=== PATIENT | male | born 1995 | race Caucasian/White ===

== ENCOUNTER 2020-04-26 18:43 | Emergency (ER) | payer OTHER, SELFPAY ==
[2020-04-26 18:53] VITALS: BP 113/73; PULSE 76; RESP 16; TEMP 36.5; O2SAT 98; BMI 23.8
--- NOTE | 2020-04-26 19:02 | ED_ITS ---
HPI - General Adult General: Chief complaint: General Medical Stated complaint: Covid symptoms.fever/loss of smell/SOB/muscle ache Time Seen by Provider: 04/26/20 18:58 Source: patient Mode of arrival: ambulatory Limitations: no limitations History of Present Illness: HPI narrative: 24-year-old male who presents here with cough along with fevers loss of sense of taste and smell. He is concerned he is Covid. Patient is well-appearing here and is no distress. He denies any worsening or improving factors. He has had no vomiting or diarrhea. Associated symptoms: Deny chest pain, dyspnea, headache(s), nausea, rash or vomiting Review of Systems Const: Reports: fever(s) Eyes: Denies: blurry vision or eye discomfort ENMT: Denies: throat pain or dental pain Card: Denies: chest pain Resp: Denies: dyspnea GI: Denies: abdominal pain, nausea, vomiting or diarrhea : Denies: dysuria Musc: Denies: neck pain or back pain Skin/Breast: Denies: rash Neuro: Denies: headache(s) Psych: Denies: depression [place]/Lymph: Denies: easy bruising All/Imm: Denies: urticaria PFSH ED PFSH: Social History (Updated 04/15/20 @ 17:42 by Nafisa Levy LPN) Smoking and tobacco status: current every day smoker Physical Exam Const: COMMON NORMALS: no acute distress, patient oriented x3 and healthy appearing HENMT: COMMON NORMALS: normocephalic and atraumatic HEAD & SCALP: normocephalic and atraumatic Eye: COMMON NORMALS: Equal, round and reactive pupils present and EOMs intact bilaterally PUPIL: Yes Equal, round and reactive pupils present Neck/C-Spine: COMMON NORMALS: full ROM and supple Chest: COMMONS NORMALS: normal inspection of the chest and normal palpation of entire chest wall Resp: COMMON NORMALS: normal respiratory effort, No retractions, No use of accessory muscles and clear to auscultation bilaterally AUSCULTATION: clear to auscultation bilaterally Cardio: COMMON NORMALS: regular rate, regular rhythm and No murmurs present (Cardio) RATE: regular rate RHYTHM: regular rhythm GI: COMMON NORMALS: Normal to inspection, nondistended, normoactive bowel sounds present, Soft to palpation, non-tender and no masses PALPATION: Yes Soft to palpation Extremity: COMMON NORMALS: normal to inspection and full ROM Neuro: COMMON NORMALS: patient oriented x3, moves all extremities and no focal motor deficits Psych: COMMON NORMALS: mental status grossly normal, Normal thought process present and cooperative THOUGHT PROCESS: Normal thought process present Skin: COMMON NORMALS: no rashes or lesions noted and no wounds GENERAL SKIN EXAM: no rashes or lesions noted Course Vital Signs: Vital signs: Vital Signs Temperature 97.7 F 04/26/20 18:53 Pulse Rate 76 04/26/20 18:53 Respiratory Rate 16 04/26/20 18:53 Blood Pressure 113/73 04/26/20 18:53 Pulse Oximetry 98 04/26/20 18:53 MDM - General Adult MDM Narrative: Medical decision making narrative: Patient presents here with Covid-like symptoms. He is in no distress not requiring any oxygen will swab him and he is to monitor his oxygen return if it gets less than 92% he understands agrees to plan. Discharge Plan Discharge Patient Disposition: Home Clinical Impression: Upper respiratory infection Qualifiers: URI type: unspecified URI Qualified Code(s): J06.9 - Acute upper respiratory infection, unspecified Condition: Stable Prescriptions: No Action No Known Home Medications RF: 0 Discharge Orders: Discharge ED (Routine); Ordered 04/26/20 Ordered By: Shreya Hammond Referrals: Clarke Lund MD [Primary Care Provider] - 1-3 days Discharge Diet: Advance as tolerated Discharge Activity: Resume usual activity Patient Instructions: Upper Respiratory Infection (ED) Coding Level of Care Code ED Genomics Scientist for [facility]
[2020-04-26 19:17] VITALS: RESP 16
[2020-04-28 07:10] LABS: Coronavirus Lab Test PTC Negative
--- NOTE | 2020-04-28 09:19 | PC.NURSE ---
Patient notified of COVID results at this time.
== END 2020-04-26 19:18 | disposition home or self-care (01) ==
PROVIDERS: Emergency Provider Emergency Medicine; PCP Family Medicine
DX: J06.9 Acute upper respiratory infection, unspecified (principal); F17.210 Nicotine dependence, cigarettes, uncomplicated
CPT/HCPCS: 12345; 87635; 99281; 99282

== ENCOUNTER → 2020-10-03 17:09 | Outpatient (BNVA) | payer SELFPAY | PROVIDERS: PCP Family Medicine; Visit Provider Nurse Practitioner | DX: R50.9 Fever, unspecified (principal) | CPT/HCPCS: 87071; 87880 ==

== ENCOUNTER 2024-03-26 14:52 | Emergency (ER) | payer SELFPAY ==
[2024-03-26 15:08] VITALS: BP 112/69; PULSE 78; RESP 18; TEMP 37; O2SAT 97; BMI 24.9
[2024-03-26 16:06] LABS: Basophils # 0.1 10^3/uL (0.0-0.1); Basophils % 0.5 %; Eosinophils % 0.1 %; Hematocrit 44.1 % (37-53); Lymphocytes # 1.3 10^3/uL (0.8-4.8); Mean Corpuscular HGB Conc 35.6 g/dL (30-55); Mean Corpuscular Hemoglobin 31.1 pg (27-33); Mean Corpuscular Volume 87.3 fl (82-101); Mean Platelet Volume 9.5 fL (7.4-10.4); Monocytes # 0.7 10^3/uL (0.2-0.9); Neutrophils # 7.85 10^3/uL (1.8-7.7); Neutrophils % 78.8 %; Nucleated Red Blood Cells % 0 %; Platelet Count 178 10^3/cmm (157-399); Red Blood Count 5.05 10^6/uL (3.85-5.65); Red Cell Distribution Width 10.9 % (12.1-15.1); White Blood Count 9.96 10^3/uL (3.29-11.43)
[2024-03-26 16:08] LABS: Alanine Aminotransferase 29 U/L (0-41); Albumin Level 4.3 g/dL (3.5-5.2); Alkaline Phosphatase 94 U/L (40-130); Anion Gap 16.3 (5-19); Aspartate Amino Transferase 24 U/L (0-40); Blood Urea Nitrogen 12 mg/dL (6-20); Carbon Dioxide 23 mmol/L (22-29); Chloride 100 mmol/L (98-107); Creatinine Clr Calc Pharmacy 115.0715; Globulin 3.3 g/dL (1.3-4.6); Glomerular Filtration Rate 80.9 mL/min (90-130); Glucose 104 mg/dL (65-115); Lipase 79 U/L (13-60); Osmolality Calculated 280 mOsm/kg (285-295); Potassium 4.3 mmol/L (3.5-5.1); Sodium 135 mmol/L (136-145); Total Bilirubin 0.6 mg/dL (0.15-1.2); Total Protein 7.6 g/dL (6.6-8.7)
--- NOTE | 2024-03-26 18:32 | CTR_ITS ---
PROCEDURE INFORMATION: Exam: CT Abdomen And Pelvis With Contrast Exam date and time: 03/26/2024 7:24 PM Age: 28 years old Clinical indication: Abdominal pain; Localized; Right lower quadrant (rlq); Additional info: Diffuse abd pain, worse in rlq TECHNIQUE: Imaging protocol: Computed tomography of the abdomen and pelvis with contrast. Radiation optimization: All CT scans at this facility use at least one of these dose optimization techniques: automated exposure control; mA and/or kV adjustment per patient size (includes targeted exams where dose is matched to clinical indication); or iterative reconstruction. Contrast material: OMNIPAQUE 350; Contrast volume: 100 ml; Contrast route: INTRAVENOUS (IV); COMPARISON: No relevant prior studies available. RADIATION DOSE METRICS: Total DLP (mGy-cm): 527.77 FINDINGS: Liver: Hepatic steatosis. Right hepatic lobe cyst. Gallbladder and biliary ducts: Normal. No calcified stones. No ductal dilation. Pancreas: Normal. No ductal dilation. Spleen: Spleen enlarged to 14 cm. Adrenal glands: Normal. No mass. Kidneys and ureters: Normal. No hydronephrosis. Stomach and bowel: Ascending and transverse wall thickening with mucosal enhancement concerning for a colitis. Appendix: No evidence of appendicitis. Intraperitoneal space: Unremarkable. No free air. No significant fluid collection. Vasculature: Unremarkable. No abdominal aortic aneurysm. Lymph nodes: Scattered subcentimeter short axis nonspecific mesenteric lymph nodes. Urinary bladder: Unremarkable as visualized. Reproductive: Unremarkable as visualized. Bones/joints: Unremarkable. No acute fracture. Soft tissues: Unremarkable. CT/CT abdomen pelvis w con* [id number] IMPRESSION: 1. Ascending and transverse wall thickening with mucosal enhancement concerning for a colitis. 2. Scattered subcentimeter short axis nonspecific mesenteric lymph nodes. 3. Spleen enlarged to 14 cm. 4. Hepatic steatosis. 5. Right hepatic lobe cyst.
--- NOTE | 2024-03-26 18:43 | ED_ITS ---
HPI - Abdominal Pain 2 General: Chief Complaint: Abdominal Pain Stated Complaint: sever abd pain, fever, dirrhea Time Seen by Provider: 03/26/24 18:16 Source: patient Mode of arrival: ambulatory Limitations: no limitations History of Present Illness: Patient is a 28-year-old male with no pertinent past medical history reporting to the emergency department with abdominal pain diffusely for the past couple of days. Also is reporting intermittent fevers, nausea vomiting and diarrhea. Denies any sick contacts or exotic foods that may explain a food poisoning. No blood in his vomit or diarrhea, stating he has had 2 many episodes to count of diarrhea over the past couple of days but the vomiting just began today. The pain is reported to be worse to the right lower quadrant, still has his gallbladder and appendix and no past surgical history. He states taking Tylenol for his pain this has not done much. Still has been able to tolerate fluids and denies any real change in appetite. No other symptoms reported, his vitals are stable at this time. MD elicited complaint: abdominal pain Pertinent past history: none Onset (ago): day(s) Pain Consistency: constant Location: Diffuse Exacerbating factors: nothing Relieving factors: nothing Associated Symptoms: Reports diarrhea, fever(s), nausea and vomiting; Denies bloating, change in stool character, chills, constipation, dysuria and hematochezia Treatments prior to arrival: other (Tylenol) Related Data Previous Rx's Medication Instructions Recorded amoxicillin 875 mg-potassium 1 tab PO BID 10 days #20 tabs 03/26/24 clavulanate 125 mg tablet Allergies Allergy/AdvReac Type Severity Reaction Status Date / Time No Known Allergies Allergy Verified 03/26/24 15:13 Review of Systems 2 General: Reports: 10 or more systems reviewed and unremarkable except in HPI and below Const: Reports: fever(s); Denies: chills, change in appetite, change in weight or diaphoresis ENMT: Denies: throat pain or hoarseness Card: Denies: chest pain, palpitations or lightheadedness Resp: Denies: dyspnea, productive cough or wheezing GI: Reports: abdominal pain, nausea, vomiting and diarrhea; Denies: constipation, bloating, change in stool character or hematochezia : Denies: flank pain, difficulty urinating, dysuria, urinary frequency or urinary urgency Musc: Denies: neck pain or back pain Skin/Breast: Denies: rash or new lesions Neuro: Denies: headache(s) or dizziness PFSH ED 2 PFSH: Social History Smoking and tobacco/nicotine status: never used tobacco/nicotine Physical Exam 2 Const: COMMON NORMALS: no acute distress, average body habitus, patient oriented x3, no limitations, healthy appearing, alert and well nourished G ENERAL APPEARANCE: cooperative and comfortable ORIENTATION/CONSCIOUSNESS: Yes awake HENMT: COMMON NORMALS: normocephalic, atraumatic, hearing grossly normal bilaterally, external ears normal, Normal external nose present, Normal nasal mucous membranes and turbinates present and moist oral mucous membranes HEAD & SCALP: normocephalic and atraumatic NOSE: Normal external nose present and Normal nasal mucous membranes and turbinates present EXTERNAL EAR: Yes external ears normal Eye: COMMON NORMALS: Equal, round and reactive pupils present, EOMs intact bilaterally, conjunctivae normal and normal visual [place] by confrontation C ONJUNCTIVA: Yes conjunctivae normal PUPIL: Yes Equal, round and reactive pupils present Neck/C-Spine: COMMON NORMALS: full ROM, supple, no meningeal signs and no JVD Resp: COMMON NORMALS: normal respiratory effort, No retractions, No use of accessory muscles and clear to auscultation bilaterally AUSCULTATION: clear to auscultation bilaterally, no crackles, no rales, no rhonchi and no wheezes Cardio: COMMON NORMALS: no JVD, regular rate, regular rhythm, S1 normal heart sound present, S2 normal heart sound present, No gallops present (Cardio), No clicks present (Cardio), No murmurs present (Cardio), No rub (Cardio) and Peripheral pulses 2+ throughout RATE: regular rate RHYTHM: regular rhythm HEART SOUNDS: S1 normal heart sound present and S2 normal heart sound present PERIPHERAL PULSES: Peripheral pulses 2+ throughout GI: COMMON NORMALS: Normal to inspection, nondistended, normoactive bowel sounds present, Soft to palpation, No hepatosplenomegaly present and no masses AUSCULTATION: Yes normoactive bowel sounds PALPATION: Yes Soft to palpation, No Guarding due to palpation present (GI), No Rigid due to palpation and Yes No hepatosplenomegaly present RECTAL EXAM: Yes deferred OTHER: Diffuse tenderness to palpation lightly of the abdomen, however pain seems to be worse in the right lower quadrant with no peritoneal signs at this time : COMMON NORMALS: Yes no CVA tenderness BLADDER/KIDNEY EXAM: Yes no CVA tenderness Back/Pelvis: COMMON NORMALS: no CVA tenderness Extremity: COMMON NORMALS: normal to inspection and full ROM Neuro: COMMON NORMALS: patient oriented x3, moves all extremities, no focal motor deficits and no sensory deficits noted SENSORIUM/ORIENTATION: Yes alert MENINGEAL SIGNS: Yes no meningeal signs Psych: COMMON NORMALS: mental status grossly normal, cooperative and speech normal SPEECH: Yes normal speech Skin: COMMON NORMALS: no rashes or lesions noted GENERAL SKIN EXAM: no rashes or lesions noted Course 2 Vital Signs: Vital signs: Vital Signs Temperature 98.6 F 03/26/24 15:08 Pulse Rate 67 03/26/24 20:47 Respiratory Rate 16 03/26/24 20:47 Blood Pressure 118/64 03/26/24 20:47 Pulse Oximetry 97 03/26/24 20:47 Oxygen Delivery Me thod Room Air 03/26/24 20:05 MDM - Abdominal Pain Medical Decision Making Patient presented for couple days of abdominal pain associate with nausea vomiting diarrhea and intermittent fevers. Lab work was unremarkable, CT did show signs of colitis and he will be treated with Augmentin and refer to general surgery for further evaluation. Also will encourage GI soft diet and return precautions were given. All other questions and concerns addressed at this time, case discussed with Dr. Hammond. Lab Data 03/26/24 15:38 03/26/24 15:38 Labs/Radiology: Radiology Impressions Abdomen/Pelvis CT 03/26/24 18:32 IMPRESSION: 1. Ascending and transverse wall thickening with mucosal enhancement concerning for a colitis. 2. Scattered subcentimeter short axis nonspecific mesenteric lymph nodes. 3. Spleen enlarged to 14 cm. 4. Hepatic steatosis. 5. Right hepatic lobe cyst. Laboratory Results WBC 9.96 10^3/uL (3.29-11.43) 03/26/24 15:38 RBC 5.05 10^6/uL (3.85-5.65) 03/26/24 15:38 Hgb 15.70 g/dL (11.27-16.99) 03/26/24 15:38 Hct 44.1 % (37-53) 03/26/24 15:38 MCV 87.3 fl (82-101) 03/26/24 15:38 MCH 31.1 pg (27-33) 03/26/24 15:38 MCHC 35.6 g/dL (30-55) 03/26/24 15:38 RDW 10.9 % (12.1-15.1) L 03/26/24 15:38 Plt Count 178 10^3/cmm (157-399) 03/26/24 15:38 MPV 9.5 fL (7.4-10.4) 03/26/24 15:38 Neut % (Auto) 78.8 % 03/26/24 15:38 Lymph % (Auto) 13.0 % 03/26/24 15:38 [place] % (Auto) 7.0 % 03/26/24 15:38 Eos % (Auto) 0.1 % 03/26/24 15:38 Baso % (Auto) 0.5 % 03/26/24 15:38 Neut # (Auto) 7.85 10^3/uL (1.8-7.7) H 03/26/24 15:38 Lymph # (Auto) 1.3 10^3/uL (0.8-4.8) 03/26/24 15:38 [place] # (Auto) 0.7 10^3/uL (0.2-0.9) 03/26/24 15:38 Eos # (Auto) 0.0 10^3/uL (0.0-0.8) 03/26/24 15:38 Baso # (Auto) 0.1 10^3/uL (0.0-0.1) 03/26/24 15:38 Nucleated RBC % (auto) 0 % 03/26/24 15:38 Nucleated RBCs # 0.0 /100WBC 03/26/24 15:38 Sodium 135 mmol/L (136-145) L 03/26/24 15:38 Potassium 4.3 mmol/L (3.5-5.1) 03/26/24 15:38 Chloride 100 mmol/L (98-107) 03/26/24 15:38 Carbon Dioxide 23 mmol/L (22-29) 03/26/24 15:38 Anion Gap 16.3 (5-19) 03/26/24 15:38 BUN 12 mg/dL (6-20) 03/26/24 15:38 Creatinine 1.1 mg/dL (0.7-1.2) 03/26/24 15:38 GFR Calculation 80.9 mL/min (90-130) L 03/26/24 15:38 Glucose 104 mg/dL (65-115) 03/26/24 15:38 Calculated Osmolality 280 mOsm/kg (285-295) L 03/26/24 15:38 Calcium 9.0 mg/dL (8.5-10.5) 03/26/24 15:38 Total Bilirubin 0.6 mg/dL (0.15-1.2) 03/26/24 15:38 AST 24 U/L (0-40) 03/26/24 15:38 ALT 29 U/L (0-41) 03/26/24 15:38 Alkaline Phosphatase 94 U/L (40-130) 03/26/24 15:38 Total Protein 7.6 g/dL (6.6-8.7) 03/26/24 15:38 Albumin 4.3 g/dL (3.5-5.2) 03/26/24 15:38 Globulin 3.3 g/dL (1.3-4.6) 03/26/24 15:38 Lipase 79 U/L (13-60) H 03/26/24 15:38 Urine Color Dark yellow (Yellow) A 03/26/24 19:12 Urine Appearance Clear (CLEAR) 03/26/24 19:12 Urine pH 5.5 (5-7) 03/26/24 19:12 Ur Specific [place] 1.029 (1.005-1.030) 03/26/24 19:12 Urine Protein 1+ (Negative) A 03/26/24 19:12 Urine Glucose (UA) Negative (Normal) 03/26/24 19:12 Urine Ketones 2+ (Negative) H 03/26/24 19:12 Urine Blood Negative (Negative) 03/26/24 19:12 Urine Nitrate Negative (Negative) 03/26/24 19:12 Urine Bilirubin 1+ (Negative) H 03/26/24 19:12 Urine Urobilinogen 1.0 mg/dL (Negative) 03/26/24 19:12 Ur Leukocyte Esterase Negative (Negative) 03/26/24 19:12 Urine RBC 0-2 /hpf (0-2) 03/26/24 19:12 Urine WBC 0-5 /hpf (0-5) 03/26/24 19:12 Ur Squamous Epith Cells 0-5 /hpf (0-5) 03/26/24 19:12 Amorphous Sediment Not Reportable 03/26/24 19:12 Urine Bacteria None seen /hpf (NONE) 03/26/24 19:12 Hyaline Casts 7.85 /lpf 03/26/24 19:12 All radiology interpretation(s) finalized by discharge Discharge Plan Discharge Patient Disposition: Home Clinical Impression: Colitis Condition: Stable Prescriptions: New amoxicillin-pot clavulanate 875-125 mg tablet 1 tab PO BID 10 Days Qty: 20 0RF Discharge Orders: Discharge ED (Routine); Ordered 03/26/24 Ordered By: Alex Gordon Referrals: Clarke Lund MD [Primary Care Provider] - Discharge Diet: GI Soft Patient Instructions: Colitis (ED), GI (Gastrointestinal) Soft Diet (ED) Activity Restrictions/Additional Instructions: Take Augmentin as prescribed. Follow-up with general surgery. GI soft diet as discussed. Follow-up with primary care and return with any new or worsening. Coding Level of Care Code ED Enterprise Manager for [facility]
[2024-03-26] MEDS: ketorolac 60 mg/2 mL INJ 30 MG IVP (18:45)
[2024-03-26] MEDS: ondansetron 2 mg/ML SDV 2 mL 4 MG IVP (18:45)
[2024-03-26 18:52] VITALS: BP 116/67; PULSE 66; RESP 16; O2SAT 98
[2024-03-26 19:16] VITALS: BP 92/68; PULSE 76; RESP 16; O2SAT 99
[2024-03-26 19:24] LABS: Bilirubin Urine 1+ (Negative); Blood Urine Negative (Negative); Glucose Urine UA Negative (Normal); Ketones Urine 2+ (Negative); Leukocyte Esterase Urine Negative (Negative); Nitrate Urine Negative (Negative); Protein Urine 1+ (Negative); Specific Gravity, Urine 1.029 (1.005-1.030); Urine Appearance Clear (CLEAR); Urine Color Dark Yellow (Yellow); pH Urine 5.5 (5-7)
[2024-03-26] MEDS: iohexol 350 mg/mL 500 mL Btl (per mL) IV (19:24)
[2024-03-26 19:28] LABS: Add Urine Microscopic? YES; Bacteria Urine None Seen /hpf; Hyaline Casts Urine 7.85 /lpf; RBC Urine 0-2 /hpf (0-2); Squamous Epithelial Cell Urine 0-5 /hpf (0-5); WBC Urine 0-5 /hpf (0-5)
[2024-03-26 20:05] VITALS: BP 109/65; PULSE 70; RESP 16; O2SAT 99
[2024-03-26] MEDS: amoxicillin-clav 875-125 mg Tablet 1 TAB PO (20:41)
[2024-03-26 20:47] VITALS: BP 118/64; PULSE 67; RESP 16; O2SAT 97
--- NOTE | 2024-03-28 09:48 | DCPLANNER ---
messaged gen surg for er f/u
== END 2024-03-26 20:48 | disposition home or self-care (01) ==
PROVIDERS: Emergency Medicine; Emergency Provider Physician Assistant; PCP Family Medicine
DX: K52.9 Noninfective gastroenteritis and colitis, unspecified (principal)
CPT/HCPCS: 74177; 80053; 81000; 81001; 83690; 85025; 96374; 96375; 99285; J1885; J2405